=== PATIENT | male | born 1965 | race Caucasian/White ===

== ENCOUNTER 2019-02-27 00:04 | Inpatient (IN) | payer OTHER ==
[2019-02-27] VITALS (7 sets, daily range): BP systolic 113–132; BP diastolic 60–79; PULSE 65–107; RESP 18–20; Ht 175.3 cm; Wt 74.0 kg
[~2019-02-27] VITALS: Ht 175.3 cm; Wt 74.0 kg
--- NOTE | 2019-02-27 04:54 | HP ---
Date/Time of Note Date/Time of Note DATE: 02/27/19 TIME: 04:51 Assessment/Plan VTE Prophylaxis SCD applied (from Nsg): Yes Pharmacological prophylaxis: NA/contraindicated Pharm contraindication: low risk/ambulating Assessment/Plan Assessment/Plan 53-year-old male with a history of alcohol abuse initially presented to [facility] with alcohol intoxication/withdrawal asking to be detoxified. He was transferred to [facility] for insurance reason. PLAN -IV fluid alternating with banana bag -Librium -As needed Ativan -Importance of abstinence from alcohol discussed -Check basic labs HPI/ROS Admit Date/Time Admit Date/Time Feb 27, 2019 at 01:03 Hx of Present Illness Patient is a 54-year-old male with a history of alcohol abuse who initially presented to [facility] asking to be detoxified for alcohol intoxication/withdrawal. Patient was transferred to [facility] for insurance reason. He told me the same thing here saying that he wants to detoxify. He had noted tremors. Currently he appears to stable and I did not see any tremors. No other complaints. Initial heart rate 107 otherwise vitals stable. PMH/Family/Social Past Medical History Medical History: other (See HPI) Past Surgical History Past Surgical Hx: other (See HPI) Family History Significant Family History: no pertinent family hx Social History Alcohol Use: heavy Smoking Status: Current every day smoker Drug Use: other Exam/Review of Systems Vital Signs Vitals Vital Signs Date Temp Pulse Resp B/P (MAP) Pulse Ox O2 O2 Flow FiO2 Time Delivery Rate 02/27/19 98.6 100 18 116/60 95 Room Air 04:39 (78) Exam Constitutional: alert, oriented, well developed Head: normocephalic, atraumatic Eyes: EOMI, PERRL Respiratory: clear to auscultation, normal air movement Cardiovascular: other (Tachycardic regular rhythm) Gastrointestinal: soft, non-tender Extremities: normal pulses ANDREA CEDENO MD Feb 27, 2019 04:54
[2019-02-27] MEDS ORDERED: NACL 0.9% 3 ML SYG IV SCH (05:00)
[2019-02-27] MEDS ORDERED: ACETAMINOPHEN 325 MG TAB PO PRN (05:00)
[2019-02-27] MEDS ORDERED: ALBUTEROL/IPRATROPIUM (NEB) 3 ML AMP HHN PRN (05:00)
[2019-02-27] MEDS ORDERED: ONDANSETRON 4 MG INJ IV PRN (05:00)
[2019-02-27] MEDS: SOD CHLORIDE 0.9% 1,000 ML IV SCH ×2 (05:21→13:33)
[2019-02-27] MEDS: LORAZEPAM 2 MG INJ IV PRN ×2 (08:50→20:20)
[2019-02-27] MEDS: CHLORDIAZEPOXIDE 25 MG CAP PO SCH ×3 (08:50→20:23)
[2019-02-27] MEDS: MULTIVITAMINS 10 ML, THIAMINE 100 MG, FOLIC ACID 1 MG in SOD CHLORIDE 0.9% 1,000 ML IVPB SCH (08:50)
--- NOTE | 2019-02-27 14:47 | PN ---
Date/Time of Note Date/Time of Note DATE: 02/27/19 TIME: 14:46 Assessment/Plan VTE Prophylaxis Risk score (from Ns)>0 risk: 1 SCD applied (from Ns): No SCD contraindicated: low risk/ambulating Pharmacological prophylaxis: NA/contraindicated Pharm contraindication: low risk/ambulating Lines/Catheters IV C[facility] Type (from [facility] Peripheral IV Assessment/Plan Hospital Course SUBJECTIVE: Denies any complaints. OBJECTIVE: Physical Exam General: Adequately build 53 year-old male lying in bed in no apparent distress. HEENT: Normocephalic, atraumatic. Eyes: Anicteric sclerae, conjunctivae clear. ENT: Nasal septum is midline, oral mucosa moist. Neck supple, no JVD noticed. Respiratory: Bilaterally clear breath sounds. No use of accessory muscles of respiration. No adventitious breath sounds. Cardiovascular: S1, S2 heard. Regular rate and rhythm. Abdomen: Soft, nontender, and nondistended. Bowel sounds positive in all 4 quadrants. Genitourinary: Deferred. Extremities: No cyanosis, no clubbing, no edema. Peripheral pulses palpable. Neurologic: Cranial nerves II through XII grossly intact. The patient is awake, alert, and oriented. Skin: Normal skin turgor. No skin rashes. Labs & Vitals per chart ASSESSMENT & PLAN 53-year-old male with past medical history of alcohol abuse who presented to an outside facility emergency room status post alcohol intoxication. The patient was transferred to [facility] for insurance reasons for further management and evaluation. 1. Alcohol intoxication. Continue Librium taper. Continue PRN IV Ativan for any active DTs. Continue daily multivitamins. Social work consult. 2. Nicotine use. Cessation advised. Nicotine patch. 3. Fluids, electrolytes, and nutrition. Regular diet. 4. DVT prophylaxis. Bilateral SCDs. 5. Plan. Continue tapering dose of Librium. Continue IV lorazepam as needed. Await clinical improvement. Transfer the patient to Med/Surg. The patient was in collaboration with Dr. Pablo. Result Diagram: 02/27/19 0551 02/27/19 0551 Results 24hrs Laboratory Tests Test 02/27/19 05:51 White Blood Count 6.7 Red Blood Count 4.04 L Hemoglobin 13.2 L Hematocrit 38.4 L Mean Corpuscular Volume 95.0 Mean Corpuscular Hemoglobin 32.7 Mean Corpuscular Hemoglobin Concent 34.4 Red Cell Distribution Width 11.9 Platelet Count 130 L Mean Platelet Volume 9.2 Immature Granulocytes % 0.100 Neutrophils % 70.6 Lymphocytes % 21.1 Monocytes % 6.3 Eosinophils % 1.5 Basophils % 0.4 Nucleated Red Blood Cells % 0.0 Immature Granulocytes # 0.010 Neutrophils # 4.7 Lymphocytes # 1.4 Monocytes # 0.4 Eosinophils # 0.1 Basophils # 0.0 Nucleated Red Blood Cells # 0.0 Sodium Level 144 Potassium Level 3.6 Chloride Level 107 Carbon Dioxide Level 28 Anion Gap 9 Blood Urea Nitrogen 11 Creatinine 0.72 Est Glomerular Filtrat Rate mL/min > 60 Glucose Level 81 Hemoglobin A1c 5.2 Calcium Level 8.3 L Phosphorus Level 3.3 Magnesium Level 1.9 Total Bilirubin 0.7 Direct Bilirubin 0.00 Indirect Bilirubin 0.7 Aspartate Amino Transf (AST/SGOT) 53 H Alanine Aminotransferase (ALT/SGPT) 52 Alkaline Phosphatase 87 Total Protein 5.7 L Albumin 3.3 Globulin 2.40 Albumin/Globulin Ratio 1.37 Triglycerides Level 63 Cholesterol Level 137 LDL Cholesterol, Calculated 72 HDL Cholesterol 52 Cholesterol/HDL Ratio 2.6 Exam/Review of Systems Exam Vitals Vital Signs Date Temp Pulse Resp B/P (MAP) Pulse Ox O2 O2 Flow FiO2 Time Delivery Rate 02/27/19 98.0 71 20 113/67 92 07:26 (82) 02/27/19 Room Air 04:39 Intake and Output 02/26/19 02/26/19 02/27/19 1515:00 23:00 07:00 IntakeIntake Total 425 ml BalanceBalance 425 ml Results Results 24hrs Laboratory Tests Test 02/27/19 05:51 White Blood Count 6.7 Red Blood Count 4.04 L Hemoglobin 13.2 L Hematocrit 38.4 L Mean Corpuscular Volume 95.0 Mean Corpuscular Hemoglobin 32.7 Mean Corpuscular Hemoglobin Concent 34.4 Red Cell Distribution Width 11.9 Platelet Count 130 L Mean Platelet Volume 9.2 Immature Granulocytes % 0.100 Neutrophils % 70.6 Lymphocytes % 21.1 Monocytes % 6.3 Eosinophils % 1.5 Basophils % 0.4 Nucleated Red Blood Cells % 0.0 Immature Granulocytes # 0.010 Neutrophils # 4.7 Lymphocytes # 1.4 Monocytes # 0.4 Eosinophils # 0.1 Basophils # 0.0 Nucleated Red Blood Cells # 0.0 Sodium Level 144 Potassium Level 3.6 Chloride Level 107 Carbon Dioxide Level 28 Anion Gap 9 Blood Urea Nitrogen 11 Creatinine 0.72 Est Glomerular Filtrat Rate mL/min > 60 Glucose Level 81 Hemoglobin A1c 5.2 Calcium Level 8.3 L Phosphorus Level 3.3 Magnesium Level 1.9 Total Bilirubin 0.7 Direct Bilirubin 0.00 Indirect Bilirubin 0.7 Aspartate Amino Transf (AST/SGOT) 53 H Alanine Aminotransferase (ALT/SGPT) 52 Alkaline Phosphatase 87 Total Protein 5.7 L Albumin 3.3 Globulin 2.40 Albumin/Globulin Ratio 1.37 Triglycerides Level 63 Cholesterol Level 137 LDL Cholesterol, Calculated 72 HDL Cholesterol 52 Cholesterol/HDL Ratio 2.6 Medications Medication Current Medications Sodium Chloride 1,000 ml @ 125 mls/hr Q8H IV Last administered on 02/27/19at 13:33; Admin Dose 125 MLS/HR; Start 02/27/19 at 04:46 IV Flush (NS 3 ml) 3 ml PER PROTOCOL IV ; Start 02/27/19 at 05:00 Ondansetron HCl (Zofran Inj) 4 mg Q6H PRN IV NAUSEA/VOMITING; Start 02/27/19 at 05:00 Acetaminophen (Tylenol Tab) 650 mg Q6H PRN PO .PAIN 1-3 OR TEMP; Start 02/27/19 at 05:00 Albuterol/ Ipratropium (Duoneb) 3 ml Q2H RESP THERAPY PRN HHN SHORTNESS OF BREATH; Start 02/27/19 at 05:00 Multivitamins 10 ml/Thiamine HCl 100 mg/Folic Acid 1 mg/Sodium Chloride 1,011.2 ml @ 125 mls/ hr DAILY@09 IVPB Last administered on 02/27/19at 08:50; Admin Dose 125 MLS/HR; Start 02/27/19 at 09:00; Stop 03/02/19 at 23:00 Chlordiazepoxide (Librium) 50 mg TID PO Last administered on 02/27/19at 13:33; Admin Dose 50 MG; Start 02/27/19 at 09:00 Lorazepam (Ativan) 2 mg Q1H PRN IV etoh w/d Last administered on 02/27/19at 08:50; Admin Dose 2 MG; Start 02/27/19 at 05:00 Lorazepam (Ativan) 1 mg Q6H PRN IV anxiety; Start 02/27/19 at 05:00 GENEVIEVE ZEPEDA NP Feb 27, 2019 14:47
[2019-02-27] MEDS: NICOTINE (21 MG/24 HR) PATCH TRANSDERM SCH (15:24)
[2019-02-28] MEDS: LORAZEPAM 2 MG INJ IV PRN ×7 (00:09→22:27)
[2019-02-28] MEDS: SOD CHLORIDE 0.9% 1,000 ML IV SCH ×3 (00:11→12:46)
--- NOTE | 2019-02-28 05:58 | PN ---
Date/Time of Note Date/Time of Note DATE: 02/28/19 TIME: 05:57 Assessment/Plan VTE Prophylaxis Risk score (from Ns)>0 risk: 1 SCD applied (from Ns): No SCD contraindicated: other Pharmacological prophylaxis: NA/contraindicated Pharm contraindication: low risk/ambulating Lines/Catheters IV C[facility]ter Type (from [facility]): Peripheral IV Assessment/Plan Hospital Course SUBJECTIVE: Denies any complaints. OBJECTIVE: Physical Exam General: Adequately build 53 year-old male lying in bed in no apparent distress. HEENT: Normocephalic, atraumatic. Eyes: Anicteric sclerae, conjunctivae clear. ENT: Nasal septum is midline, oral mucosa moist. Neck supple, no JVD noticed. Respiratory: Bilaterally clear breath sounds. No use of accessory muscles of re spiration. No adventitious breath sounds. Cardiovascular: S1, S2 heard. Regular rate and rhythm. Abdomen: Soft, nontender, and nondistended. Bowel sounds positive in all 4 quadrants. Genitourinary: Deferred. Extremities: No cyanosis, no clubbing, no edema. Peripheral pulses palpable. Neurologic: Cranial nerves II through XII grossly intact. The patient is awake, alert, and oriented. Skin: Normal skin turgor. No skin rashes. Labs & Vitals per chart ASSESSMENT & PLAN 53-year-old male with past medical history of alcohol abuse who presented to an outside facility emergency room status post alcohol intoxication. The patient was transferred to [facility] for insurance reasons for further management and evaluation. 1. Alcohol intoxication. Continue Librium taper. Continue PRN IV Ativan for any active DTs. Continue daily multivitamins. Social work consult. 2. Nicotine use. Cessation advised. Nicotine patch. 3. Fluids, electrolytes, and nutrition. Regular diet. 4. DVT prophylaxis. Bilateral SCDs. 5. Plan. Continue tapering dose of Librium. Continue IV lorazepam as needed. Replete electrolytes. Await clinical improvement. The patient was in collaboration with Dr. Pablo. Result Diagram: 02/28/19 0445 02/28/195 Results 24hrs Laboratory Tests Test 02/28/19 04:45 White Blood Count 5.1 # Red Blood Count 3.96 L Hemoglobin 13.1 L Hematocrit 37.7 L Mean Corpuscular Volume 95.2 Mean Corpuscular Hemoglobin 33.1 H Mean Corpuscular Hemoglobin Concent 34.7 Red Cell Distribution Width 11.5 Platelet Count 114 L Mean Platelet Volume 9.7 Immature Granulocytes % 0.200 Neutrophils % 65.7 Lymphocytes % 27.4 Monocytes % 4.5 Eosinophils % 2.0 Basophils % 0.2 Nucleated Red Blood Cells % 0.0 Immature Granulocytes # 0.010 Neutrophils # 3.4 Lymphocytes # 1.4 Monocytes # 0.2 L Eosinophils # 0.1 Basophils # 0.0 Nucleated Red Blood Cells # 0.0 Sodium Level 138 Potassium Level 3.1 L Chloride Level 106 Carbon Dioxide Level 26 Anion Gap 6 Blood Urea Nitrogen 7 Creatinine 0.66 Est Glomerular Filtrat Rate mL/min > 60 Glucose Level 93 Calcium Level 8.5 Phosphorus Level 3.3 Magnesium Level 1.4 L Total Bilirubin 1.7 H Direct Bilirubin 0.00 Indirect Bilirubin 1.7 H Aspartate Amino Transf (AST/SGOT) 49 H Alanine Aminotransferase (ALT/SGPT) 55 Alkaline Phosphatase 60 Total Protein 5.3 L Albumin 3.1 L Globulin 2.20 Albumin/Globulin Ratio 1.40 Exam/Review of Systems Exam Vitals Vital Signs Date Temp Pulse Resp B/P (MAP) Pulse Ox O2 O2 Flow FiO2 Time Delivery Rate 02/27/19 98.5 65 18 124/70 98 Room Air 23:56 (88) Intake and Output 02/27/19 02/27/19 02/28/19 1515:00 23:00 07:00 IntakeIntake Total 650 ml 2055 ml BalanceBalance 650 ml 2055 ml Results Results 24hrs Laboratory Tests Test 02/28/19 04:45 White Blood Count 5.1 # Red Blood Count 3.96 L Hemoglobin 13.1 L Hematocrit 37.7 L Mean Corpuscular Volume 95.2 Mean Corpuscular Hemoglobin 33.1 H Mean Corpuscular Hemoglobin Concent 34.7 Red Cell Distribution Width 11.5 Platelet Count 114 L Mean Platelet Volume 9.7 Immature Granulocytes % 0.200 Neutrophils % 65.7 Lymphocytes % 27.4 Monocytes % 4.5 Eosinophils % 2.0 Basophils % 0.2 Nucleated Red Blood Cells % 0.0 Immature Granulocytes # 0.010 Neutrophils # 3.4 Lymphocytes # 1.4 Monocytes # 0.2 L Eosinophils # 0.1 Basophils # 0.0 Nucleated Red Blood Cells # 0.0 Sodium Level 138 Potassium Level 3.1 L Chloride Level 106 Carbon Dioxide Level 26 Anion Gap 6 Blood Urea Nitrogen 7 Creatinine 0.66 Est Glomerular Filtrat Rate mL/min > 60 Glucose Level 93 Calcium Level 8.5 Phosphorus Level 3.3 Magnesium Level 1.4 L Total Bilirubin 1.7 H Direct Bilirubin 0.00 Indirect Bilirubin 1.7 H Aspartate Amino Transf (AST/SGOT) 49 H Alanine Aminotransferase (ALT/SGPT) 55 Alkaline Phosphatase 60 Total Protein 5.3 L Albumin 3.1 L Globulin 2.20 Albumin/Globulin Ratio 1.40 Medications Medication Current Medications Sodium Chloride 1,000 ml @ 125 mls/hr Q8H IV Last administered on 02/28/19at 00:11; Admin Dose 125 MLS/HR; Start 02/27/19 at 04:46 IV Flush (NS 3 ml) 3 ml PER PROTOCOL IV ; Start 02/27/19 at 05:00 Ondansetron HCl (Zofran Inj) 4 mg Q6H PRN IV NAUSEA/VOMITING; Start 02/27/19 at 05:00 Acetaminophen (Tylenol Tab) 650 mg Q6H PRN PO .PAIN 1-3 OR TEMP; Start 02/27/19 at 05:00 Albuterol/ Ipratropium (Duoneb) 3 ml Q2H RESP THERAPY PRN HHN SHORTNESS OF BREATH; Start 02/27/19 at 05:00 Multivitamins 10 ml/Thiamine HCl 100 mg/Folic Acid 1 mg/Sodium Chloride 1,011.2 ml @ 125 mls/ hr DAILY@09 IVPB Last administered on 02/27/19at 08:50; Admin Dose 125 MLS/HR; Start 02/27/19 at 09:00; Stop 03/02/19 at 23:00 Chlordiazepoxide (Librium) 50 mg TID PO Last administered on 02/27/19at 20:23; Admin Dose 50 MG; Start 02/27/19 at 09:00 Lorazepam (Ativan) 2 mg Q1H PRN IV etoh w/d Last administered on 02/27/19at 20:20; Admin Dose 2 MG; Start 02/27/19 at 05:00 Lorazepam (Ativan) 1 mg Q6H PRN IV anxiety Last administered on 02/28/19at 00:09; Admin Dose 1 MG; Start 02/27/19 at 05:00 Nicotine (Nicoderm 21 Mg/ 24hr) 1 patch DAILY TRANSDERM Last administered on 02/27/19at 15:24; Admin Dose 1 PATCH; Start 02/27/19 at 15:00 GENEVIEVE ZEPEDA NP Feb 28, 2019 05:58
[2019-02-28 07:34] VITALS: BP 126/78; PULSE 76; RESP 18
[2019-02-28] MEDS ORDERED: POTASSIUM CHLORIDE (SR) 20 MEQ TAB PO STA (08:46)
[2019-02-28] MEDS: CHLORDIAZEPOXIDE 25 MG CAP PO SCH ×3 (09:06→20:37)
[2019-02-28] MEDS: NICOTINE (21 MG/24 HR) PATCH TRANSDERM SCH (09:14)
[2019-02-28] MEDS ORDERED: MAGNESIUM SULFATE 3 GM in DEXTROSE 5% 100 ML IVPB ONE ×2 (09:30→10:30)
[2019-02-28] MEDS: MULTIVITAMINS 10 ML, THIAMINE 100 MG, FOLIC ACID 1 MG in SOD CHLORIDE 0.9% 1,000 ML IVPB SCH (14:12)
[2019-02-28 14:45] VITALS: BP 139/85; PULSE 93; RESP 19
[2019-02-28 19:40] VITALS: BP 123/84; PULSE 99; RESP 18
[2019-03-01] MEDS: SOD CHLORIDE 0.9% 1,000 ML IV SCH ×2 (00:30→04:46)
[2019-03-01 01:19] VITALS: BP 120/80; PULSE 90; RESP 20
[2019-03-01 07:12] VITALS: BP 120/79; PULSE 63; RESP 17
[2019-03-01] MEDS: CHLORDIAZEPOXIDE 25 MG CAP PO SCH (08:52)
[2019-03-01] MEDS: NICOTINE (21 MG/24 HR) PATCH TRANSDERM SCH (08:53)
[2019-03-01] MEDS ORDERED: THIA500T PO (10:13)
[2019-03-01] MEDS ORDERED: MULTI PO (10:13)
[2019-03-01] MEDS ORDERED: CHLO25CA9 PO (10:14)
[2019-03-01] MEDS ORDERED: CHLO10CA6 PO (10:14)
--- NOTE | 2019-03-01 10:23 | PDOCDIS ---
Discharge Instructions CONDITION [id number] Patient Condition: [id number] Stable HOME CARE INSTRUCTIONS: [id number] Diet Instructions: [id number] Regular ACTIVITY: [id number] Activity Restrictions: [id number] No Restrictions [id number] Bathing Restrictions: Sfgwn2e Shower [id number] Activity Restrictions Iikaz5l Do not drive when intoxicated Comment: OTHER ORDERS: Other Orders: 1. Take medications as per prescription. 2. Abstain from using alcohol. 3. Resume activities as tolerated. 4. Follow-up with your primary care physician in 2 weeks. 5. Please go to the nearest emergency room if you have significant withdrawal symptoms, persistent nausea/vomiting, or any other unusual signs/symptoms. GENEVIEVE ZEPEDA NP Mar 01, 2019 10:23
--- NOTE | 2019-03-01 10:49 | DS ---
Date/Time of Note Date/Time of Note DATE: 03/01/19 TIME: 10:47 Discharge Summary Admission/Discharge Info Admit Date/Time Feb 27, 2019 at 01:03 Discharge Date/Time Discharge Diagnosis 1. Alcohol intoxication. 2. Nicotine use. Patient Condition: Stable Hx of Present Illness This is a 53-year-old male with past medical history of alcohol abuse who presented to an outside facility emergency room status post alcohol intoxication. The patient was transferred to [facility] for insurance reasons for further management and evaluation. Hospital Course The patient was admitted to inpatient setting. He was started on a Librium taper. He was also maintained on IV Ativan for any active DTs. The patient was started on multivitamins. The patient was counseled multiple times on the importance of staying away from the use of alcohol. The patient is also a current nicotine user. The patient was given a nicotine patch. However, he refused it. The patient was monitored in-house closely for any withdrawal symptoms. The patient did not have any significant DTs. The patient will be discharged home on a short course of Librium taper. The patient will also be discharged home on multivitamins including thiamine. The patient was also evaluated by nephrology social worker. The patient has good social support as per reports. Therefore, the patient will be discharged home. The patient is otherwise a relatively healthy male with no significant medical problems. Discharge Instructions 1. Take medications as per prescription. 2. Abstain from using alcohol. 3. Resume activities as tolerated. 4. Follow-up with your primary care physician in 2 weeks. 5. Please go to the nearest emergency room if you have significant withdrawal symptoms, persistent nausea/vomiting, or any other unusual signs/symptoms. The patient verbalized understanding of his discharge instructions. The patient was seen in collaboration with Dr. Pablo. Home Meds Active Scripts Chlordiazepoxide* (Chlordiazepoxide*) 10 Mg Capsule, 10 MG PO TID, #3 CAP Prov:GENEVIEVE ZEPEDA NP 03/01/19 Chlordiazepoxide* (Chlordiazepoxide*) 25 Mg Capsule, 25 MG PO TID, #3 CAP Prov:GENEVIEVE ZEPEDA NP 03/01/19 Multivitamins* (Theragran*) 1 Tab Tab, 1 TAB PO DAILY, #30 TAB Prov:GENEVIEVE ZEPEDA NP 03/01/19 Thiamine* (Thiamine*) 500 Mg Tablet, 500 MG PO DAILY, #30 TAB Prov:GENEVIEVE ZEPEDA [employer] 03/01/19 Follow-up Plan Follow-up with your primary care physician in 2 weeks. Primary Care Provider Care Physician No Primary Time spent on discharge: > 30 minutes Pending Labs Laboratory Tests Test 03/01/19 04:36 White Blood Count 5.0 10^3/ul (4.8-10.8) Red Blood Count 4.11 10^6/ul (4.70-6.10) Hemoglobin 13.4 g/dl (14.0-18.0) Hematocrit 38.9 % (42.0-52.0) Mean Corpuscular Volume 94.6 fl (82.0-101.0) Mean Corpuscular Hemoglobin 32.6 pg (29.0-33.0) Mean Corpuscular Hemoglobin Concent 34.4 g/dl (32.0-37.0) Red Cell Distribution Width 11.7 % (11.5-14.5) Platelet Count 99 10^3/UL (140-415) Mean Platelet Volume 9.9 fl (7.4-10.4) Immature Granulocytes % 0.200 % (0.001-0.429) Neutrophils % 63.4 % (39.0-77.0) Lymphocytes % 27.6 % (15.0-51.0) Monocytes % 6.2 % (0.0-11.0) Eosinophils % 2.2 % (0.0-7.0) Basophils % 0.4 % (0.0-2.0) Nucleated Red Blood Cells % 0.0 /100WBC (0.0-0.0) Immature Granulocytes # 0.010 10^3/ul (0.0-0.031) Neutrophils # 3.2 10^3/ul (1.6-7.5) Lymphocytes # 1.4 10^3/ul (0.8-2.9) Monocytes # 0.3 10^3/ul (0.3-0.9) Eosinophils # 0.1 10^3/ul (0.0-0.5) Basophils # 0.0 10^3/ul (0.0-0.1) Nucleated Red Blood Cells # 0.0 10^3/ul (0.0-0.0) Sodium Level 139 mmol/L (135-144) Potassium Level 3.6 mmol/L (3.5-5.1) Chloride Level 108 mmol/L (97-110) Carbon Dioxide Level 26 mmol/L (21-31) Anion Gap 5 (5-13) Blood Urea Nitrogen 5 mg/dl (7-20) Creatinine 0.66 mg/dl (0.61-1.24) Est Glomerular Filtrat Rate mL/min > 60 mL/min (>60) Glucose Level 112 mg/dl (70-220) Calcium Level 8.6 mg/dl (8.4-10.2) Phosphorus Level 3.3 mg/dl (2.5-4.9) Magnesium Level 1.7 mg/dl (1.7-2.5) GENEVIEVE ZEPEDA NP Mar 01, 2019 10:49
[2019-03-01] MEDS ORDERED: CHLORDIAZEPOXIDE 25 MG CAP PO SCH (13:00)
== END 2019-03-01 11:18 | disposition home or self-care (01) | DRG 897 ==
LOC: UNDOADMIN 01:03 → PP2 01:03 → TEL 01:03 → MS1 23:45
PROVIDERS: ADMIT Internal Medicine; ATTEND Internal Medicine
DX: F10.129 Alcohol abuse with intoxication, unspecified (principal); F17.200 Nicotine dependence, unspecified, uncomplicated
CPT/HCPCS: 80048; 80053; 80061; 83036; 83735; 84100; 85025; 87081; J2060; J3411; J3475; J7030

== ENCOUNTER 2019-03-18 21:05 | Emergency (ER) | payer OTHER ==
[~2019-03-18] VITALS: Ht 175.3 cm; Wt 73.6 kg
[~2019-03-18 21:05] MED LIST: CHLO10CA6 PO; CHLO25CA9 PO; MULTI PO; THIA500T PO
[2019-03-18 21:11] VITALS: Ht 175.3 cm; Wt 73.6 kg
--- NOTE | 2019-03-18 22:13 | ERD ---
ER Documentation Chief Complaint Chief Complaint poss ETOH withdrawal; last drink an hr ago; wanted to get sober HPI Patient is a 53-year-old male with a history of alcohol abuse who presents for drinking alcohol. He said that he drank 4 bottles of vega goose vodka since this morning. Upon review of old medical records the patient had one previous visit with admission on February 27. He was admitted for alcohol withdrawal. Review of the emergency department information exchange system shows visits to 4 separate emergency departments for a total of 10 visits over the past 1 year. He does not currently have a primary doctor. ROS All systems reviewed and are negative except as per history of present illness. Medications Home Meds Active Scripts Chlordiazepoxide* (Chlordiazepoxide*) 10 Mg Capsule, 10 MG PO TID, #3 CAP Prov:GENEVIEVE ZEPEDA NP 03/01/19 Chlordiazepoxide* (Chlordiazepoxide*) 25 Mg Capsule, 25 MG PO TID, #3 CAP Prov:GENEVIEVE ZEPEDA NP 03/01/19 Multivitamins* (Theragran*) 1 Tab Tab, 1 TAB PO DAILY, #30 TAB Prov:GENEVIEVE ZEPEDA NP 03/01/19 Thiamine* (Thiamine*) 500 Mg Tablet, 500 MG PO DAILY, #30 TAB Prov:GENEVIEVE ZEPEDA RECEIVING INSPECTOR 03/01/19 Allergies Allergies: Coded Allergies: morphine (Verified Allergy, Unknown, 02/27/19) PMhx/Soc History of Surgery: Yes (R knee X3, Septoplasty) Anesthesia Reaction: No Hx Neurological Disorder: No Hx Respiratory Disorders: No Hx Cardiac Disorders: No Hx Psychiatric Problems: No Hx Miscellaneous Medical Probl: Yes (ETOH) Hx Alcohol Use: Yes Hx Substance Use: Yes Hx Tobacco Use: Yes (1pack per day) FmHx Family History: diabetes Physical Exam Vitals Vital Signs Date Temp Pulse Resp B/P (MAP) Pulse Ox O2 O2 Flow FiO2 Time Delivery Rate 03/18/19 98.0 89 17 122/76 100 Room Air 23:00 (91) 03/18/19 98.1 110 24 116/84 96 21:11 (95) Physical Exam Const: No acute distress Head: Atraumatic Eyes: Normal Conjunctiva ENT: Normal External Ears, Nose and Mouth. Neck: Full range of motion. No meningismus. Resp: Clear to auscultation bilaterally Cardio: Regular rate and rhythm, no murmurs Abd: Soft, non tender, non distended. Normal bowel sounds Skin: No petechiae or rashes Back: No midline or flank tenderness Ext: No cyanosis, or edema Neur: Awake and alert, intoxicated Results 24 hrs Current Medications Medications Dose Sig/Alonzo Start Time Status Last (Trade) Ordered Route PRN Stop Time Admin Dose Reason Admin 40 ml ONCE ONCE 03/18/19 DC 03/18/19 Miscellaneous PO 22:30 22:31 Medication 03/18/19 22:31 (Gi Cocktail (2)) Procedures/MDM EKG read by me: Rate/Rhythm: Regular rate and rhythm at a rate of 90 Intervals: Normal Impression: No evidence of ischemia or arrhythmia Smoking Cessation Therapy: Pt. was lectured for greater than 3 minutes on the health risks of continued smoking and the benefits of cessation. Patient is a 53-year-old male who presents with acute on chronic alcohol abuse. The patient was given GI cocktail for his symptoms of burning in the esophagus. EKG shows no signs of ischemia or arrhythmia. At this point I believe he has acute alcohol intoxication and would benefit from outpatient alcohol detoxification. The patient will be discharged with a list of the local detox centers in the area. He can return for any worsening symptoms. I doubt acute delirium tremens and I do not believe requires further work-up or admission in the hospital at this time. Departure Diagnosis: Primary Impression: Alcohol abuse Condition: Fair Patient Instructions: Alcohol Withdrawal: What to Expect Referrals: [facility] YOU HAVE RECEIVED A MEDICAL SCREENING EXAM AND THE RESULTS INDICATE THAT YOU DO NOT HAVE A CONDITION THAT REQUIRES URGENT TREATMENT IN THE EMERGENCY DEPARTMENT. FURTHER EVALUATION AND TREATMENT OF YOUR CONDITION CAN WAIT UNTIL YOU ARE SEEN IN YOUR DOCTORS OFFICE WITHIN THE NEXT 1-2 DAYS. IT IS YOUR RESPONSIBILITY TO MAKE AN APPOINTMENT FOR FOLOW-UP CARE. IF YOU HAVE A PRIMARY DOCTOR --you should call your primary doctor and schedule an appointment IF YOU DO NOT HAVE A PRIMARY DOCTOR YOU CAN CALL OUR PHYSICIAN REFERRAL HOTLINE AT IF YOU CAN NOT AFFORD TO SEE A PHYSICIAN YOU CAN CHOSE FROM THE FOLLOWING [facility] [address] [facility]. [facility] [address] [facility]. [facility] [address] [facility]. [facility] [address] [facility]. [facility] [address] [facility]. [facility] [address] Additional Instructions: Call your primary care doctor TOMORROW for an appointment during the next 1-2 days.See the doctor sooner or return here if your condition worsens before your appointment time. MARLEY HILLS MD Mar 18, 2019 22:12
[2019-03-18] MEDS ORDERED: LIDOCAINE/MYLANTA 40 ML BTL PO ONE (22:30)
[2019-03-18 23:00] VITALS: BP 122/76; PULSE 89; RESP 17
== END 2019-03-18 23:04 | disposition home or self-care (01) ==
LOC: E/R 21:05
DX: F10.10 Alcohol abuse, uncomplicated (principal); F17.210 Nicotine dependence, cigarettes, uncomplicated
CPT/HCPCS: Z7502; Z7610; 93005